=== PATIENT | female | born 1985 | race Two or more races ===

== ENCOUNTER 2018-12-08 11:30 | Inpatient (IN) | payer BC, OTHER ==
[2018-12-08] MEDS ORDERED: CITRIC ACID/SODIUM CITRATE 30 ML UNIT-DOSE CUP PO ONE (12:05)
[2018-12-08] MEDS ORDERED: ELECTROLYTE-148 SOLN 1,000 ML IV SCH (12:15)
--- NOTE | 2018-12-08 12:16 | HP ---
Past Medical History - Admission Chief Complaint: labor pain, contractions , short cervix, hx of c s History Source: Patient Limitations to Obtaining History: No Limitations - Past Medical History SANITATION DIRECTOR: No: Alzheimer's, CVA, Dementia, Migraine, Multiple Sclerosis, Peripheral Neuropathy, Parkinson's, Seizure, Syncope, TIA, Vertigo, Other Cardiovascular: No: AFIB, Aneurysm, Aortic Insufficiency, Aortic Stenosis, CAD, CHF, Deep Vein Thrombosis, HTN, Hyperlipdemia, [place], Mitral Insufficiency, Mitral Stenosis, Murmur, Pulmonary Hypertension, Other Pulmonary: No: Asthma, Bronchitis, Cancer, COPD, O2 Dependent, Pneumonia, Previously Intubated, Pulmonary Embolus, Pulmonary Fibrosis, Sleep Apnea, Other Gastrointestinal: No: Ascites, Cancer, Constipation, Crohn's Disease, Diverticulitis, Diverticulosis, Esophageal Varices, Gastritis, GERD, GI Bleed, Hemorrhoids, Hiatal Hernia, Inflamatory Bowel Disease, Irritable Bowel Disease, Pancreatitis, Peptic Ulcer Disease, Ulcerative Colitis, Other Hepatobiliary: No: Cirrhosis, Cholelithiasis, Cholecystitis, Choledocholithiasis , Hepatitis A, Hepatitis B, Hepatitis C, Other Renal/: No: Renal Failure, Renal Inusuff, BPH, Cancer, Hematuria, Hemodialysis , Neurogenic Bladder, Renal Calculi, UTI, Other Reproductive: No: Ectopic , Endometriosis, Fibroids, PID, Polycystic Ovary Syndrome, Postmenopausal, Other ...: 2 ...Para: 1 ... Weeks Gestation by Dates: 35 ...EDC by Dates: 01/12/19 Heme/Onc: No: Anemia, B12 Deficiency, Bleeding Disorder, Cancer, Current Chemotherapy, Current Radiation Therapy, Hemochromatosis, Hypercoaguable State, Myeloproliferative Synd, Sickle Cell Disease, Sickle Cell Trait, Thrombocytopenia, Other Infectious Disease: No: AIDS, C-Diff, Herpes Zoster, HIV, MRSA, STD's, Tuberculosis, VREF, Other Psych: No: Addictions, Anxiety, Bipolar, Depression, Panic, Psychosis, Schizophrenia, Other Musculoskeletal: No: Bursitis, Chronic low back pain, Hemiparesis, Hemiplegia, Osteoarthritis, Paraplegia, Other Rheumatology: No: Fibromyalgia, Gout, Lupus, Rheumatoid Arthritis, Sarcoidosis, Vasculitis, Other ENT: No: Allergic Rhinitis, Sinusitis, Other Endocrine: No: Lamberto's Disease, [place]'s Disease, Diabetes Insipidus, Diabetes Mellitus, Hyperparathyroidism, Hyperthyroidism, Hypothyroidism, Osteopenia, SIADH, Other Dermatology: No: Basal Cell, Cellulitis, Eczema, Melanoma, Psoriasis, Squamous Cell, Other - Past Surgical History Past Surgical History: No: None, AAA Repair, AICD, Amputation, Appendectomy, Arthrosocopy, AV Fistula/Graft, Bariatric Surgery, Breast Biopsy, Bypass, CABG, Carotid Endarterectomy, Cataract Removal, Cholecystectomy, Colectomy, Colonoscopy, Colostomy, Craniotomy, , Cystectomy, Hernia Repair, Hysterectomy, Ileal Conduit, Ileosotomy, Joint Replacement, Kidney Transplant, Laminectomy, Liver Transplant, Mastectomy, Nephrectomy, Oopherectomy, Orchiectomy, Permanent Pacemaker, Prostatectomy, Splenectomy, Stent, Thoracotomy , TURP, Tonsillectomy, Tubal Ligation, Upper Endoscopy, Valve Replacement, Vasectomy, Vein Stripping/Ligation Hx Myomectomy: No Hx Transabdominal Cerclage: No - Advance Directives Advance Directives: Yes: Living Will - Smoking History Smoking history: Never smoked Have you smoked in the past 12 months: No - Alcohol/Substance Use Hx Alcohol Use: No History of Substance Use: reports: None - Social History Usual Living Arrangement: Yes: With Spouse ADL: Independent History of Recent Travel: No Home Medications - Allergies Allergies/Adverse Reactions: Allergies Allergy/AdvReac Type Severity Reaction Status Date / Time No Known Allergies Allergy Verified 12/08/18 13:02 Family Disease History - Family Disease History Family History: Denies Review of Systems - Review of Systems Constitutional: reports: No Symptoms Eyes: reports: No Symptoms HENT: reports: No Symptoms Neck: reports: No Symptoms Cardiovascular: reports: No Symptoms Respiratory: reports: No Symptoms Gastrointestinal: reports: No Symptoms Genitourinary: reports: No Symptoms Breasts: reports: No Symptoms Reported Musculoskeletal: reports: No Symptoms Integumentary: reports: No Symptoms Neurological: reports: No Symptoms Endocrine: reports: No Symptoms Hematology/Lymphatic: reports: No Symptoms Psychiatric: reports: No Symptoms Pain Intensity: 1 Physical Exam - Maternity Constitutional: Yes: Well Nourished, No Distress, Calm Eyes: Yes: WNL, Conjunctiva Clear, EOM Intact HENT: Yes: WNL, Atraumatic, Normocephalic Neck: Yes: WNL, Supple, Trachea Midline Cardiovascular: Yes: WNL, Regular Rate and Rhythm Lungs: Clear to auscultation Breast(s): Yes: WNL - Abdominal Exam/OB Fundal Height: 36 Number of Fetuses: Single Presentation: Vertex Contractions: Yes Regularity: Irregular Intensity: Mild/Mod Monitor Mode: External Heart Rate Location: [facility] Category: I Accelerations: Uniform Decelerations: None - Vaginal Exam/OB Vaginal Bleediing: No Speculum Exam: No Dilatation (cm): 3 Effacement (%): 70 Amniotic Membrane Status: Intact Nitrazine Test: Negative Presentation: Vertex/Position Station: -2 - Physical Exam Musculoskeletal: Yes: WNL Extremities: Yes: WNL Edema: No Integumentary: Yes: WNL Deep Tendon Reflex Grade: Normal +2 ...Motor Strength: WNL Psychiatric: Yes: WNL, Alert, Oriented Assessment/Plan hx of previous c s in labor, short cervix on progesterone suppositiry m for repeat c s
[2018-12-08 12:35] LABS: BASO % 0.3 % (0-2.0); EOS % 0.8 % (0-4.5); HEMATOCRIT 31.4 % (32.4-45.2); HEMOGLOBIN 10.5 GM/dL (10.7-15.3); LYMPH % 22.9 % (8-40); MCHC 33.3 g/dl (32.0-36.0); MEAN CELL VOLUME 90.1 fl (80-96); MEAN PLT VOLUME 7.4 fl (7.5-11.1); MONO % 6.2 % (3.8-10.2); NEUT % 69.8 % (42.8-82.8); PLATELET COUNT 385 K/MM3 (134-434); RBC 3.49 M/mm3 (3.60-5.2); RDW 14.2 % (11.6-15.6)
[2018-12-08 12:51] LABS: INR 0.96 (0.83-1.09); PROTHROMBIN TIME (PATIENT) 11.3 SEC (9.7-13.0)
[2018-12-08 12:53] LABS: ACTIVATED PTT 29.2 SECONDS (25.2-36.5)
[2018-12-08 13:02] LABS: BLOOD UREA NITROGEN 5.5 mg/dL (7-18); CREATININE 0.5 mg/dL (0.55-1.3); POTASSIUM 4.2 mmol/L (3.5-5.1)
[2018-12-08] MEDS ORDERED: OXYTOCIN 20 UNITS in 0.9% NS 40 UNIT/2,000 ML INFUS.BAG IV ONE (13:19)
[2018-12-08] MEDS ORDERED: DEXAMETHASONE SOD PHOSPHATE 4 MG/1 ML VIAL ONE (13:22)
[2018-12-08] MEDS ORDERED: ceFAZolin SODIUM 1 GM VIAL ONE (13:22)
[2018-12-08] MEDS ORDERED: morphine SULFATE/PF 0.5 MG/ML (2cc Syringe - QUVA) ONE (13:22)
[2018-12-08] MEDS ORDERED: PHENYLEPHRINE HCL 10 MG/1 ML SINGLE DOSE VIAL ONE (13:22)
[2018-12-08] MEDS ORDERED: KETAMINE HCL 500 MG/10 ML VIAL ONE (13:59)
[2018-12-08] MEDS ORDERED: METHYLERGONOVINE MALEATE 0.2 MG/1 ML AMP IM PRN (15:01)
[2018-12-08] MEDS ORDERED: IBUPROFEN 800 MG/8 ML IJ IVPB PRN (15:01)
[2018-12-08] MEDS ORDERED: oxyCODONE HCL 5 MG TABLET PO PRN ×2 (15:01)
--- NOTE | 2018-12-08 15:05 | OP ---
Operative Note - Note: Operative Date: 12/08/18 Pre-Operative Diagnosis: previuos c s in labor Operation: repeat c s lt Findings: no adhesions Post-Operative Diagnosis: Same as Pre-op Surgeon: Jp Edmondson Physician Scientist: Esteban Martinez Anesthesiologist/SUPERVISORY HISTORIAN: Tri Kidd Anesthesia: Spinal Estimated Blood Loss (mls): 600 Operative Report Dictated: Yes
[2018-12-08] MEDS ORDERED: OXYTOCIN 20 UNITS in 0.9% NS 20 UNIT/1,000 ML INFUS.BAG IV SCH (15:15)
[2018-12-08 15:34] VITALS: BMI 39.1
[2018-12-08] MEDS ORDERED: ONDANSETRON 4 MG/2 ML VIAL IVPUSH PRN (17:17)
[2018-12-09 08:51] LABS: BASO % 0.2 % (0-2.0); EOS % 0.3 % (0-4.5); HEMATOCRIT 30.9 % (32.4-45.2); HEMOGLOBIN 10.3 GM/dL (10.7-15.3); LYMPH % 23.2 % (8-40); MCH 30.4 pg (25.7-33.7); MCHC 33.5 g/dl (32.0-36.0); MEAN CELL VOLUME 90.8 fl (80-96); MEAN PLT VOLUME 7.9 fl (7.5-11.1); MONO % 7.2 % (3.8-10.2); NEUT % 69.1 % (42.8-82.8); PLATELET COUNT 417 K/MM3 (134-434); WHITE BLOOD COUNT 15.1 K/mm3 (4.0-10.0)
[2018-12-09] MEDS ORDERED: DIPHTH,PERTUSS(ACELL),TET 0.5 ML DISP.SYRIN IM ONE (10:00)
[2018-12-09] MEDS: ENOXAPARIN NA (PORCINE) 40 MG/0.4 ML DISP.SYRIN SQ SCH (10:15)
--- NOTE | 2018-12-09 13:43 | PN ---
Progress Note (short form) - Note Progress Note: Anesthesia POD#1 VSS,no N/V,pain is bearable, Good leg strength. Tri Kidd MD.
--- NOTE | 2018-12-09 14:52 | PN ---
Post Progress Note Post Day: 1 Type of Delivery: Repeat C/S Vital Signs: Vital Signs Temperature 97.8 F 12/09/18 10:00 Pulse Rate 77 12/09/18 10:00 Respiratory Rate 18 12/09/18 12:00 Blood Pressure 110/71 12/09/18 10:00 O2 Sat by Pulse Oximetry (%) 98 12/08/18 21:00 Breast Exam: Yes: Soft Uterus: Yes: Fundus Firm, Fundus below umbilicus Incision: Yes: Dressing dry and intact Abdomen/GI: Yes: Abdomen soft, Passing flatus, Tolerating PO Lochia: Yes: Serosa Lochia, amount: Small Extremities: Yes: Calves non-tender Perineum: Yes: Intact Activity: Ambulating - Labs Labs: CBC WBC 15.1 K/mm3 (4.0-10.0) H 12/09/18 08:00 RBC 3.40 M/mm3 (3.60-5.2) L 12/09/18 08:00 Hgb 10.3 GM/dL (10.7-15.3) L 12/09/18 08:00 Hct 30.9 % (32.4-45.2) L 12/09/18 08:00 MCV 90.8 fl (80-96) 12/09/18 08:00 MCH 30.4 pg (25.7-33.7) 12/09/18 08:00 MCHC 33.5 g/dl (32.0-36.0) 12/09/18 08:00 RDW 14.0 % (11.6-15.6) 12/09/18 08:00 Plt Count 417 K/MM3 (134-434) 12/09/18 08:00 MPV 7.9 fl (7.5-11.1) 12/09/18 08:00 Absolute Neuts (auto) 10.4 K/mm3 (1.5-8.0) H 12/09/18 08:00 Neutrophils % 69.1 % (42.8-82.8) 12/09/18 08:00 Lymphocytes % 23.2 % (8-40) 12/09/18 08:00 Monocytes % 7.2 % (3.8-10.2) 12/09/18 08:00 Eosinophils % 0.3 % (0-4.5) 12/09/18 08:00 Basophils % 0.2 % (0-2.0) 12/09/18 08:00 Nucleated RBC % 0 % (0-0) 12/09/18 08:00 Assessment/Plan tolerating po well
[2018-12-09] MEDS ORDERED: BISACODYL 10 MG SUPP.RECT RC PRN (15:01)
[2018-12-09] MEDS: ACETAMINOPHEN 325 MG TABLET (FP) PO PRN (20:43)
[2018-12-09] MEDS: SIMETHICONE 80 MG TAB.CHEW (FP) PO PRN (20:43)
[2018-12-09] MEDS: IBUPROFEN 600 MG TABLET (FP) PO PRN (20:44)
[2018-12-10] MEDS: SIMETHICONE 80 MG TAB.CHEW (FP) PO PRN ×2 (08:08→18:29)
[2018-12-10] MEDS: ACETAMINOPHEN 325 MG TABLET (FP) PO PRN ×2 (08:08→18:29)
[2018-12-10] MEDS: IBUPROFEN 600 MG TABLET (FP) PO PRN ×2 (08:09→18:29)
[2018-12-10] MEDS: ENOXAPARIN NA (PORCINE) 40 MG/0.4 ML DISP.SYRIN SQ SCH (09:19)
--- NOTE | 2018-12-10 09:40 | OP ---
DATE OF OPERATION: 12/08/2018 PREOPERATIVE DIAGNOSIS: Previous history of section, in labor and a short cervix. POSTOPERATIVE DIAGNOSIS: Previous history of section, in labor and a short cervix. PROCEDURE: Repeat low transverse section. SURGEON: Jp Edmondson MD ONLINE MEDIA BUYER: TIFFANIE Torres ANESTHESIOLOGIST: LORY Henderson ANESTHESIA: Spinal. BLOOD LOSS: About 600 mL. SPECIMEN: Placenta to pathology. INDICATION: This is a 33-year-old female. Patient has been followed up perinatologist, Dr. Cr, was known to have a short cervix. Patient was placed on progesterone suppository. Patient had a previous history of a , premature labor at 34 weeks and previous at 34 weeks. So, patient came into the hospital with contractions every 5-10 minutes , and the patient complained of pelvic pressure and the patient's cervix was short, was about 2-3 cm, open, and 80% and bulging membranes. So, patient was admitted, and patient was prepared for repeat low transverse section. However, due to an emergency and there was no doctor in house, there was no office assistant available in the hospital; so, the physician office assistant Esteban Martinez was called. He was available. So, he was able to assist for the . DESCRIPTION OF PROCEDURE: Patient was taken to the OR and placed on the operating table in supine position. After spinal anesthesia was obtained, the patient was placed on the operating table in supine position, and the abdomen prepped and draped in the usual sterile manner. So, a Pfannenstiel incision was made through the skin and subcutaneous tissue, and fascia was nicked in the midline. The fascia extended bilaterally. Anterior peritoneal cavity was entered. Bladder flap was not created. Low transverse segment of the uterus was entered. Baby was delivered from LOT position. Baby was handed off to the manager publishing after umbilical cord doubly clamped and cut. Cord blood gases obtained. Placenta was removed. Side Seam Envelope Machine Operator was at the bedside, resuscitating the baby. Baby Apgars were 9 and 9, was breathing well, no complication. So, placenta was removed. Uterus closed in single layer, first layer interlocking Vicryl sutures. Good hemostasis. Both gutters cleaned. Both ovaries, fallopian tubes, and uterus were within normal limits. No complications. Patient tolerated the procedure well. Peritoneum was closed. Fascia was closed. Skin was closed. Draining clear urine. Blood loss about 600 mL. Transferred to recovery room in stable condition. MD JULISSA COLBERT/[id number]
--- NOTE | 2018-12-10 14:24 | PN ---
Post Progress Note Post Day: 2 Type of Delivery: Repeat C/S Vital Signs: Vital Signs Temperature 98.3 F 12/10/18 09:24 Pulse Rate 74 12/10/18 09:24 Respiratory Rate 20 12/10/18 09:24 Blood Pressure 116/68 12/10/18 09:24 O2 Sat by Pulse Oximetry (%) 98 12/10/18 09:00 Breast Exam: Yes: Soft Uterus: Yes: Fundus Firm, Fundus below umbilicus Incision: Yes: Dressing dry and intact, Sutures intact Abdomen/GI: Yes: Abdomen soft, Passing flatus, Tolerating PO Lochia: Yes: Serosa Lochia, amount: Small Extremities: Yes: Calves non-tender Activity: Ambulating - Labs Labs: CBC WBC 15.1 K/mm3 (4.0-10.0) H 12/09/18 08:00 RBC 3.40 M/mm3 (3.60-5.2) L 12/09/18 08:00 Hgb 10.3 GM/dL (10.7-15.3) L 12/09/18 08:00 Hct 30.9 % (32.4-45.2) L 12/09/18 08:00 MCV 90.8 fl (80-96) 12/09/18 08:00 MCH 30.4 pg (25.7-33.7) 12/09/18 08:00 MCHC 33.5 g/dl (32.0-36.0) 12/09/18 08:00 RDW 14.0 % (11.6-15.6) 12/09/18 08:00 Plt Count 417 K/MM3 (134-434) 12/09/18 08:00 MPV 7.9 fl (7.5-11.1) 12/09/18 08:00 Absolute Neuts (auto) 10.4 K/mm3 (1.5-8.0) H 12/09/18 08:00 Neutrophils % 69.1 % (42.8-82.8) 12/09/18 08:00 Lymphocytes % 23.2 % (8-40) 12/09/18 08:00 Monocytes % 7.2 % (3.8-10.2) 12/09/18 08:00 Eosinophils % 0.3 % (0-4.5) 12/09/18 08:00 Basophils % 0.2 % (0-2.0) 12/09/18 08:00 Nucleated RBC % 0 % (0-0) 12/09/18 08:00 Assessment/Plan regular diet
[2018-12-11] MEDS: ACETAMINOPHEN 325 MG TABLET (FP) PO PRN ×2 (04:06→17:39)
[2018-12-11] MEDS: IBUPROFEN 600 MG TABLET (FP) PO PRN ×2 (04:07→17:39)
[2018-12-11] MEDS: SIMETHICONE 80 MG TAB.CHEW (FP) PO PRN ×2 (04:07→17:38)
[2018-12-11] MEDS: ENOXAPARIN NA (PORCINE) 40 MG/0.4 ML DISP.SYRIN SQ SCH (09:51)
[2018-12-11 10:07] LABS: BASO % 0.6 % (0-2.0); EOS % 3.3 % (0-4.5); HEMATOCRIT 31.3 % (32.4-45.2); HEMOGLOBIN 10.5 GM/dL (10.7-15.3); LYMPH % 37.3 % (8-40); MCH 30.1 pg (25.7-33.7); MCHC 33.5 g/dl (32.0-36.0); MEAN CELL VOLUME 89.8 fl (80-96); MEAN PLT VOLUME 7.9 fl (7.5-11.1); MONO % 7.4 % (3.8-10.2); NEUT % 51.4 % (42.8-82.8); PLATELET COUNT 445 K/MM3 (134-434); RBC 3.48 M/mm3 (3.60-5.2); RDW 14.1 % (11.6-15.6); WHITE BLOOD COUNT 9.2 K/mm3 (4.0-10.0)
--- NOTE | 2018-12-12 09:22 | PN ---
Post Progress Note Post Day: 4 Type of Delivery: Repeat C/S Vital Signs: Vital Signs Temperature 98.5 F 12/11/18 22:00 Pulse Rate 61 12/11/18 22:00 Respiratory Rate 18 12/11/18 22:00 Blood Pressure 128/83 12/11/18 22:00 O2 Sat by Pulse Oximetry (%) 98 12/10/18 09:00 Breast Exam: Yes: Soft Uterus: Yes: Fundus Firm, Fundus below umbilicus Incision: Yes: Dressing dry and intact, Sutures intact Abdomen/GI: Yes: Abdomen soft, Passing flatus, Tolerating PO Lochia: Yes: Serosa Lochia, amount: Small Extremities: Yes: Calves non-tender, Edema Perineum: Yes: Intact Activity: Ambulating - Labs Labs: CBC WBC 9.2 K/mm3 (4.0-10.0) 12/11/18 09:27 RBC 3.48 M/mm3 (3.60-5.2) L 12/11/18 09:27 Hgb 10.5 GM/dL (10.7-15.3) L 12/11/18 09:27 Hct 31.3 % (32.4-45.2) L 12/11/18 09:27 MCV 89.8 fl (80-96) 12/11/18 09:27 MCH 30.1 pg (25.7-33.7) 12/11/18 09:27 MCHC 33.5 g/dl (32.0-36.0) 12/11/18 09:27 RDW 14.1 % (11.6-15.6) 12/11/18 09:27 Plt Count 445 K/MM3 (134-434) H 12/11/18 09:27 MPV 7.9 fl (7.5-11.1) 12/11/18 09:27 Absolute Neuts (auto) 4.7 K/mm3 (1.5-8.0) 12/11/18 09:27 Neutrophils % 51.4 % (42.8-82.8) D 12/11/18 09:27 Lymphocytes % 37.3 % (8-40) D 12/11/18 09:27 Monocytes % 7.4 % (3.8-10.2) 12/11/18 09:27 Eosinophils % 3.3 % (0-4.5) D 12/11/18 09:27 Basophils % 0.6 % (0-2.0) 12/11/18 09:27 Nucleated RBC % 0 % (0-0) 12/11/18 09:27 Assessment/Plan dc pt home today
--- NOTE | 2018-12-12 09:24 | DS ---
Physical Exam-SUPERVISOR MICROWAVE Vital Signs: Vital Signs Temperature 98.5 F 12/11/18 22:00 Pulse Rate 61 12/11/18 22:00 Respiratory Rate 18 12/11/18 22:00 Blood Pressure 128/83 12/11/18 22:00 O2 Sat by Pulse Oximetry (%) 98 12/10/18 09:00 Constitutional: Yes: Well Nourished, No Distress, Calm Eyes: Yes: WNL, Conjunctiva Clear, EOM Intact HENT: Yes: WNL, Atraumatic, Normocephalic Neck: Yes: WNL, Supple, Trachea Midline Cardiovascular: Yes: WNL, Regular Rate and Rhythm Respiratory: Yes: WNL, Regular, CTA Bilaterally Gastrointestinal: Yes: WNL, Normal Bowel Sounds, Soft ...Rectal Exam: Yes: WNL Renal/: Yes: WNL Pelvis: Yes: WNL External Genitalia: Yes: Normal Internal Exam Deferred: No Vaginal Exam: Yes: Normal Cervix: Yes: Normal Uterus: Yes: Normal Adnexa: Normal: Bilateral ....Post : Yes: Uterus firm, Uterus non-tender Breast(s): Yes: WNL Musculoskeletal: Yes: WNL Extremities: Yes: WNL Edema: Yes Edema: LUE: 2+, RUE: 2+, LLE: 2+, RLE: 2+ Integumentary: Yes: WNL Wound/Incision: Yes: Clean/Dry, Well Approximated Neurological: Yes: WNL, Alert, Oriented ...Motor Strength: WNL Psychiatric: Yes: WNL, Alert, Oriented Labs: CBC, BMP 12/11/18 09:27 12/08/18 12:25 Delivery - Delivery Type of Anesthesia: Spinal Episiotomy/Laceration: None EBL (cc): 600 Delivery, Single - Stages of Labor Date of Delivery: 12/08/18 Time of Delivery: 14:07 Time Placenta Delivered: 14:08 - Condition of Infant Warehouse Helper/Jewelry Mold Maker Present: Yes Name: João Manzano Gender: Female Weight: 2.807 kg Position: Left, OA Total Hours ROM (Hrs/Mins): 2 MINS - 1 Minute Total Score: 8 5 Minutes Total Score: 8 - Feeding Plan Initial Plan: Elected not to breastfeed exclusively throughout hospitalization Discharge Summary Reason For Visit: REPEAT Condition: Stable - Instructions Diet, Activity, Other Instructions: regular Referrals: Jp Edmondson MD [Staff Physician] - Disposition: HOME
[2018-12-12] MEDS: ACETAMINOPHEN 325 MG TABLET (FP) PO PRN (10:15)
[2018-12-12] MEDS: SIMETHICONE 80 MG TAB.CHEW (FP) PO PRN (10:16)
[2018-12-12] MEDS: IBUPROFEN 600 MG TABLET (FP) PO PRN (10:16)
[2018-12-12] MEDS: ENOXAPARIN NA (PORCINE) 40 MG/0.4 ML DISP.SYRIN SQ SCH (10:16)
[2018-12-12 11:54] VITALS: BP 127/76; PULSE 65; TEMP 98.9
--- NOTE | 2018-12-13 15:36 | PATH ---
Surgical Pathology Report Patient Name: MARYLOU MCMANUS [facility]. Rec. #: [id number] /Age/Gender: 1985 (Age: 33) / F Account: [id number] Location: [facility] OBS/LOW VOLTAGE TECHNICIAN Taken: 12/08/2018 Received: 12/09/2018 Reported: 12/13/2018 Physicians: Jp Edmondson MD Specimen(s) Received PLACENTA Clinical History 35.1 weeks' gestation, no other medical history, 2013 Final Diagnosis PLACENTA: THIRD TRIMESTER PLACENTA. TRIVASCULAR CORD. MEMBRANES WITH NO DIAGNOSTIC ABNORMALITIES. Electronically Signed Rory Gonzales M.D. Gross Description The specimen is received fresh labeled placenta and is a 467 gram, 15.5 x 13.5 x 2.7 cm. placenta with attached membranes and umbilical cord. The attached membranes are hernández, translucent with focal opacities and insert marginally. The umbilical cord measures 21 cm. in length and averages 1.3 cm. in diameter. The cord inserts eccentrically, 4 cm. to the nearest margin. No true knots or strictures are identified. Cut surface of the umbilical cord reveals 3 vessels. The surface is fonetnot-blue with minimal fibrin deposition and appropriate caliber vessels. The maternal surface is red-brown with focal defects. Sectioning reveals red-brown, spongy parenchyma. No lesions are identified. Inclusion Special Education Teacher sections are submitted in three cassettes as follows: 1- membrane rolls and umbilical cord; 2-3- full thickness sections of placenta. /12/12/2018 [facility]12/12/2018
== END 2018-12-12 14:05 | disposition home or self-care (01) | DRG 787 ==
LOC: EDBD 11:30 → JLDR 11:30 → J3W 16:50
PROVIDERS: ADMIT Obstetrics & Gynecology; ATTEND Obstetrics & Gynecology
PROC: 10D00Z1 Extraction of Products of Conception, Low, Open Approach (ICD-10-PCS; principal; 2018-12-08)
DX: O34.219 Maternal care for unspecified type scar from previous cesarean delivery (principal); O26.873 Cervical shortening, third trimester; Z3A.35 35 weeks gestation of pregnancy; Z37.0 Single live birth
CPT/HCPCS: 36415; 80048; 85025; 85610; 85730; 86593; 86850; 86900; 86901; 88307-TC; 90715